=== PATIENT | female | born 1970 | race Asian ===

== ENCOUNTER 2022-04-04 12:45 | Emergency (ER) | payer OTHER ==
[~2022-04-04] VITALS: Ht 152.4 cm; Wt 68.2 kg
[2022-04-04 15:18] VITALS: BP 146/70
[2022-04-04] MEDS ORDERED: HYDROcodone-ACET 5/325MG TAB PO ONE (16:00)
[2022-04-04] MEDS ORDERED: IBUP600T28 PO (17:00)
== END 2022-04-04 17:15 | disposition home or self-care (01) ==
LOC: ER 12:45
DX: S82.401A Unspecified fracture of shaft of right fibula, initial encounter for closed fracture (principal); S83.91XA Sprain of unspecified site of right knee, initial encounter; I10 Essential (primary) hypertension; Z86.73 Personal history of transient ischemic attack (TIA), and cerebral infarction without residual deficits; S93.601A Unspecified sprain of right foot, initial encounter; W18.39XA Other fall on same level, initial encounter; Y93.89 Activity, other specified; Y92.89 Other specified places as the place of occurrence of the external cause; Y99.8 Other external cause status
CPT/HCPCS: 29515; 73610

== ENCOUNTER 2022-05-20 14:25 | Inpatient (IN) | payer OTHER ==
[~2022-05-20] VITALS: Ht 152.4 cm; Wt 63.0 kg
[~2022-05-20 14:25] MED LIST: IBUP600T28 PO
[2022-05-20 14:30] VITALS: BP 142/81
[2022-05-20 15:05] LABS: Basophils # (auto) 0.1 10 ^3/uL (0-0.2); Eosinophils # (auto) 0.1 10 ^3/uL (0-0.8); Eosinophils % (auto) 0.5 % (0.0-7.0); Hemoglobin 14.8 g/dL (12.2-16.2); Mean Corpuscular Hemoglobin 25.3 pg (28.0-32.0); Mean Corpuscular Volume 77.8 fL (80.0-100.0); Monocytes # (auto) 0.7 10 ^3/uL (0-1.3); White Blood Cell 9.9 10^3/uL (4.4-10.8)
[2022-05-20 15:07] LABS: Hematocrit 45.6 % (36.0-46.0); Lymphocytes % (auto) 20.5 % (10.0-50.0); Mean Corpuscular Hgb Conc. 32.5 g/dL (32.0-36.0); Monocytes % (auto) 7.1 % (0.0-12.0); Neutrophils % (auto) 70.9 % (37.0-80.0); Red Blood Cells 5.86 10^6/uL (4.0-5.20)
[2022-05-20] MEDS ORDERED: ASPirin 325 MG TAB PO ONE (15:15)
[2022-05-20 15:17] LABS: Albumin 4.4 g/dL (3.4-5.0); BUN/Creatinine Ratio 14.5; Potassium 3.2 mmol/L (3.5-5.1)
[2022-05-20 15:19] LABS: Bilirubin, Total 0.7 mg/dL (0.2-1.0); Total Protein 8.3 g/dL (6.4-8.2)
[2022-05-20] MEDS ORDERED: SODIUM CHLORIDE 0.9% 1,000 ML IV SCH (16:00)
[2022-05-20] MEDS ORDERED: MORPHINE SULFATE INJ 2 MG/ml SYRG IV PRN (16:00)
[2022-05-20] MEDS ORDERED: HYDROcodone-ACET 5/325MG TAB PO PRN (16:00)
[2022-05-20] MEDS ORDERED: PANTOPRAZOLE 40 MG/10 ML VIAL INJ IV ONE (16:00)
[2022-05-20] MEDS ORDERED: NITROGLYCERIN 0.4 MG SL TAB SL PRN (16:00)
[2022-05-20] MEDS ORDERED: ACETAMINOPHEN 325 MG TAB PO PRN (16:00)
[2022-05-20] MEDS ORDERED: POTASSIUM EFFERVESENT TAB 25 MEQ PO ONE (16:30)
[2022-05-20 17:34] LABS: Cholesterol 210 mg/dL (< 200)
[2022-05-20 17:39] LABS: HDL Cholesterol 117 mg/dL (40-59); LDL Cholesterol 89 mg/dL (< 100); Triglycerides 83 mg/dL (< 150)
[2022-05-21] MEDS ORDERED: ENOXAPARIN SOD 40 MG/0.4 ML SYRINGE SC SCH (10:00)
[2022-05-21] MEDS ORDERED: ASPirin 81 mg TAB PO SCH (10:00)
[2022-05-21] MEDS ORDERED: PANTOPRAZOLE 40 MG/10 ML VIAL INJ IV SCH (10:00)
== END 2022-05-20 22:36 | disposition left against medical advice (07) | DRG 311 ==
LOC: ER 14:25 → TELE 16:30
PROVIDERS: ADMIT Nurse Practitioner Family; ATTEND Nurse Practitioner Family
DX: I24.9 Acute ischemic heart disease, unspecified (principal); E78.5 Hyperlipidemia, unspecified; I10 Essential (primary) hypertension; Z86.73 Personal history of transient ischemic attack (TIA), and cerebral infarction without residual deficits; Z53.29 Procedure and treatment not carried out because of patient's decision for other reasons; Z90.49 Acquired absence of other specified parts of digestive tract; M25.511 Pain in right shoulder
CPT/HCPCS: 36415; 71045; 80053; 80061; 83036; 84443; 84484; 85025; 85379; 93005; G0378